=== PATIENT | male | born 1945 | race Caucasian/White ===

== ENCOUNTER → 2023-12-26 07:14 | Outpatient (REF) | payer OTHER, SELFPAY | LOC: RAD 07:14 | PROVIDERS: ATTENDING PHYSICIAN Family Medicine | DX: R41.3 Other amnesia (principal); Z82.0 Family history of epilepsy and other diseases of the nervous system | CPT/HCPCS: 70450 ==

== ENCOUNTER → 2024-01-13 08:42 | Outpatient (REF) | payer OTHER, SELFPAY | LOC: MRI 3T 08:42 | PROVIDERS: ATTENDING PHYSICIAN Family Medicine | DX: M48.061 Spinal stenosis, lumbar region without neurogenic claudication (principal); W19.XXXA Unspecified fall, initial encounter | CPT/HCPCS: 72148 ==

== ENCOUNTER → 2024-02-29 17:02 | Outpatient (REF) | payer OTHER, SELFPAY | LOC: PAVMRI 17:02 | PROVIDERS: ATTENDING PHYSICIAN Psychiatry & Neurology Neurology; FAMILY PHYSICIAN Family Medicine | DX: R41.3 Other amnesia (principal) | CPT/HCPCS: 70551 ==

== ENCOUNTER 2024-03-21 09:31 | Emergency (ER) | payer OTHER, SELFPAY ==
[2024-03-21 09:45] VITALS: BP 133/76
[2024-03-21 09:54] VITALS: BP 140/75
--- NOTE | 2024-03-21 09:58 | ED.GENMED ---
History of Present Illness
General
Chief Complaint: Fall
Source: patient
Time Seen by Provider: 03/21/24 09:47
History of Present Illness
History of Present Illness:
78-year-old male with past medical history of hypertension presenting to the emergency department for evaluation after an accidental trip and fall last night while he was taking out the garbage stating he just tripped over his own feet falling
forward onto his face. Over time patient developed some right-sided periorbital edema and ecchymosis as well as abrasion to the nose but patient states he did not think it was bad enough to be evaluated last night and figured until the morning. He
states symptoms are not any different this morning, still noting some mild pain and swelling but states felt it was important to be evaluated. He denies any headache, loss consciousness, vomiting, visual changes, focal weakness or numbness.
Patient has secondary history of feeling slightly ill over the last week. Patient states he attributed the symptoms to cold-like illness as he was taking care of grandchildren who also had similar. He notes that his was at the primary care
provider this morning and tested positive for COVID. Patient is otherwise denying any chest pain, shortness of breath, cough or any other URI-like symptoms presently.
Past History
Past History
ED Past Medical History: HTN
ED Past Surgical History: Orthopedic
Social History
Tobacco: Non-smoker
Alcohol: None
Drug: None
Personal:
Living: with family
Review of Systems
Review of Systems
All Other Systems: ROS reviewed and negative except as documented in HPI and ROS
Phy Exam
Physical Exam
Physical Exam:
GENERAL: Alert , in no apparent distress
HEAD: ecchymosis to upper right eyelid with mild ttp. small abrasion to right eyebrow, abrasion to bridge of nose
EYE: conjunctiva clear, gross vision intact bilateral, pupils 3mm bilateral
NECK: Supple, no midline ttp
ENT: o/p clr, mmm.
CARDIAC: Regular rate and rhythm
LUNGS: Clear breath sounds bilaterally, no acute respiratory distress, no wheezes/rales/rhonchi
NEUROLOGICAL: Alert and oriented
SKIN: Warm and dry, skin intact.
MUSCULOSKELETAL: well perfused.
PSYCH: Normal and appropriate interaction.
Scores
Heart Failure Risk
Heart Failure Risk Score: Not Applicable
Heart Score for Chest Pain Patients
STEMI patient?: Not applicable
Withdrawal Assessment of Alcohol
Withdrawal Assessment Completed?: Not applicable
Course
Orders/Labs/Results
Orders:
Orders
03/21/24 09:57
CT Facial Bones W/o Iv Contras Urgent
Comment:
Reason For Exam: fall, facial injuries,right side periorbital edema
CT Head W/o Iv Contrast Urgent
Comment:
Reason For Exam: fall, head injury
Vital Signs
Initial and Last Documented VS:
Initial Vital Signs
Temp Pulse Resp BP Pulse Ox
98.2 F 92 16 133/76 98
03/21/24 09:45 03/21/24 09:45 03/21/24 09:45 03/21/24 09:45 03/21/24 09:45
Last Documented Vital Signs
Temp Pulse Resp BP Pulse Ox
98.2 F 80 24 125/73 96
03/21/24 09:45 03/21/24 10:30 03/21/24 10:30 03/21/24 11:36 03/21/24 10:30
MDM/Problems Addressed
Differential Diagnosis Includes:
Facial contusion, facial abrasion, intracranial bleeding, facial fracture, nasal bone fracture
MDM/Problems Addressed:
78-year-old male presenting to the emergency department for evaluation after an accidental trip and fall last night resulting in facial injury. Noted right-sided periorbital ecchymosis with some mild tenderness. Gross vision intact. No pain with
extraocular movements. Abrasion over the nasal bridge with mild edema also noted. Will obtain CT of the head as well as facial bones. Reassessment following imaging. Secondary concern of mild URI-like symptoms over the last week, asymptomatic
today. tested positive for COVID today at primary care office. Suspect patient likely also has/had COVID but is not exhibiting any symptoms that would warrant further emergency care.
*Pulse Oximetry
Patient hypoxic: no
*Critical Care Note
Total Time (30-74mins, 75-104mins- exclusive of procedures): Not Applicable
Patient Management
Escalation/DeEscalation of care consider admission/obs:
Patient CT scan is negative for any acute intracranial pathologies. There are also no evidence for facial fractures. Right periorbital contusion noted. Advised to keep head elevated as well as ice. NSAIDs/Tylenol as needed for pain. Aware of
return precautions to the ER. Patient is stable for discharge home.
ED Attending Note
-
Portions of this chart may have been created with voice recognition software.� Occasional wrong word or��sound alike� substitutions may have occurred due to the inherent limitations of voice recognition software.
Discharge Plan
Departure
Patient Disposition: Home (Routine Discharge)
Date of Disposition: 03/21/24
Time of Disposition: 11:32
Patient with high blood pressure during this ER visit?: No
Discharge Problem:
Accidental fall, Contusion of right orbital tissues, Abrasion of nose
Instructions: Preventing falls in adults
Prescriptions:
No Action
meloxicam 15 MG tablet
15 mg PO PRN PRN (Reason: pain)
lisinopril 10 MG tablet
10 mg PO DAILY
timolol maleate 1 DROP drops
1 drp BOTH EYES DAILY
rosuvastatin 5 MG tablet
5 mg PO HS
Triamcinolone 0.1% Ointment:
1 applic topical PRN PRN (Reason: yeast )
polyethylene glycol 3350 17 GRAMS powder in packet
17 grams PO DAILYPRN PRN (Reason: constipation) Qty: 1 0RF
tramadol 50 MG tablet
25 - 50 mg PO Q6HPRN PRN (Reason: severe pain/breakthrough pain) Qty: 7 0RF
acetaminophen [Tylenol Extra Strength] 500 MG tablet
1,000 mg PO Q6HPRN PRN (Reason: mild pain) Qty: 1 0RF
Referrals:
Jimmie Morrissey MD [Family Provider] -
Interventions
Interventions:
*Nursing Disposition Last Done: 03/21/24 11:48
ED-Musculoskeletal Assessment Last Done: 03/21/24 10:55
ED- Neurological Assessment Last Done: 03/21/24 10:55
ED-Skin Assessment Last Done: 03/21/24 10:55
Discharge Date and Time
Discharge Date/Time: 03/21/24 11:49
Print Language: NEPALESE
[2024-03-21 10:00] VITALS: BP 126/72
[2024-03-21 11:36] VITALS: BP 125/73
== END 2024-03-21 11:49 | disposition home or self-care (01) ==
LOC: EMR 09:31
PROVIDERS: EMERGENCY PHYSICIAN Emergency Medicine; FAMILY PHYSICIAN Family Medicine
DX: S05.11XA Contusion of eyeball and orbital tissues, right eye, initial encounter (principal); W01.0XXA Fall on same level from slipping, tripping and stumbling without subsequent striking against object, initial encounter; I10 Essential (primary) hypertension
CPT/HCPCS: 99284; 70450; 70486

== ENCOUNTER → 2025-02-12 16:16 | Outpatient (REF) | payer OTHER, SELFPAY | LOC: EMG 16:16 | PROVIDERS: ATTENDING PHYSICIAN Physical Medicine & Rehabilitation; FAMILY PHYSICIAN Family Medicine | DX: M48.062 Spinal stenosis, lumbar region with neurogenic claudication (principal); R20.0 Anesthesia of skin | CPT/HCPCS: 95886; 95912 ==